=== PATIENT | male | born 1935 | race Hispanic/Latino ===

== ENCOUNTER 2024-02-17 13:38 | Emergency (ER) | payer MEDICARE ==
[~2024-02-17] VITALS: Ht 170.2 cm; Wt 72.6 kg
[~2024-02-17 13:38] MED LIST: ACET-66 PO; AZIT1PAC7 PO; BROM118S48 PO; ONDA4TAB10 PO
[2024-02-17 13:59] VITALS: BP 159/81; PULSE 69; RESP 18
[2024-02-17] MEDS ORDERED: ERYT1OIN7 OP (14:03)
[2024-02-17] MEDS: FLUORESCEIN SODIUM 1 STRIP STRIP OP SCH (14:07)
[2024-02-17] MEDS: TETRACAINE HCL 0.5% 4 ML OPHTH SOLN OP SCH (14:08)
[2024-02-17] MEDS: FLUORESCEIN SODIUM 1 STRIP STRIP ONE (14:08)
== END 2024-02-17 14:53 | disposition home or self-care (01) ==
LOC: EDH 13:38
DX: S05.02XA Injury of conjunctiva and corneal abrasion without foreign body, left eye, initial encounter (principal); X58.XXXA Exposure to other specified factors, initial encounter; Y93.89 Activity, other specified; Y92.89 Other specified places as the place of occurrence of the external cause; Y99.8 Other external cause status